=== PATIENT | male | born 1985 | race Caucasian/White ===

== ENCOUNTER 2017-08-09 09:08 | Emergency (ER) | payer OTHER ==
[2017-08-09 09:33] VITALS: BP 129/93
--- NOTE | 2017-08-09 09:57 | ED ---
GI/ HPI - HPI Summary HPI Summary: 32 yr old male with the complaint of penile redness and irritation. He and his girlfriend have been recently tested for STD that were negative. He has a hydroceole and is following up with urology. He states his girlfriend had a confirmed yeast infection. He feels he has a skin yeast infection as well. - History of Current Complaint Chief Complaint: [place] Time Seen by Provider: 08/09/17 09:42 Stated Complaint: SKIN COMPLAINT Pain Intensity: 0 - Allergy/Home Medications Allergies/Adverse Reactions: Allergies Allergy/AdvReac Type Severity Reaction Status Date / Time No Known Allergies Allergy Verified 08/09/17 09:25 Home Medications: Home Medications Clotrimazole 1% CREAM* [Clotrimazole 1%*] 1 applic TOPICAL BID PRN 08/09/17 [ History Confirmed 08/09/17] Folic Acid TAB* [Folvite TAB*] 2 mg PO DAILY 08/09/17 [History Confirmed ] Methotrexate TAB* 10 mg PO WEEKLY 08/09/17 [History Confirmed 08/09/17] Omeprazole CAP* [Prilosec CAP* 20 MG] 40 mg PO DAILY 08/09/17 [History Confirmed 08/09/17] Petrolatum 5 GM* [Vaseline*] 1 applic TOPICAL BID PRN 08/09/17 [History Confirmed 08/09/17] PMH/Surg Hx/FS Hx/Imm Hx Previously Healthy: Yes Endocrine/Hematology History: Denies: Hx Diabetes Cardiovascular History: Reports: Hx Hypertension Respiratory History: Denies: Hx Asthma - Surgical History Surgery Procedure, Year, and Place: 2004 Infectious Disease History: No Infectious Disease History: Denies: Traveled Outside the [place] in Last 30 Days - Family History Known Family History: Positive: Hypertension - FATHER - Social History Occupation: Employed Full-time Lives: With Family Alcohol Use: Weekly Alcohol Amount: 3-4 times a week Substance Use Type: Reports: None Smoking Status (MU): Never Smoked Tobacco Review of Systems Negative: Fever, Chills Positive: other - skin irritation penis flannery and foreskin. All Other Systems Reviewed And Are Negative: Yes Physical Exam Triage Information Reviewed: Yes Vital Signs On Initial Exam: Initial Vitals Temp Pulse Resp BP Pulse Ox 98.1 F 82 16 129/93 98 08/09/17 09:23 04/30/18 09:23 08/09/17 09:23 08/09/17 09:23 08/09/17 09:23 Vital Signs Reviewed: Yes Appearance: Positive: Well-Appearing, No Pain Distress Skin: Positive: Warm, Skin Color Reflects Adequate Perfusion Head/Face: Positive: Normal Head/Face Inspection Eyes: Positive: EOMI ENT: Positive: Normal ENT inspection Neck: Positive: Nontender Respiratory/Lung Sounds: Positive: Clear to Auscultation, Breath Sounds Present Cardiovascular: Positive: RRR. Negative: Murmur Abdomen Description: Positive: Nontender Male Genital Exam: Positive: No Hernia, Erythema - mild to the distal shaft of penis , flannery, and the foreskin. consitent with kris., Other - No vesicles. no pus. Negative: Epididymal Tenderness, Inguinal Tenderness, Scrotum Tenderness (R), Scrotum Tenderness (L), Testicular Tenderness (R), Testicular Tenderness (L), Urethral Discharge Musculoskeletal: Positive: Normal, Strength/ROM Intact Neurological: Positive: Sensory/Motor Intact, Alert, Oriented to Person Place, Time, CN Intact II-III, Normal Gait, Speech Normal Psychiatric: Positive: Normal AVPU Assessment: Alert - [place] Coma Scale Best Eye Response: 4 - Spontaneous Best Motor Response: 6 - Obeys Commands Best Verbal Response: 5 - Oriented Coma Scale Total: 15 Diagnostics - Vital Signs Vital Signs Temp Pulse Resp BP Pulse Ox 08/09/17 09:23 98.1 F 82 16 129/93 98 - Laboratory Lab Statement: Any lab studies that have been ordered have been reviewed, and results considered in the medical decision making process. GIGU Course/Dx - Course Course Of Treatment: 32 y old with kris infection shaft penis, and flannery. Plan Diflucan, and also antifungal powder. FU with Urology. - Diagnoses Provider Diagnoses: Infection due to yeast, Hypertension Discharge - Sign-Out/Discharge Documenting (check all that apply): Discharge/Admit/Transfer - Discharge Plan Condition: Good Disposition: HOME Prescriptions: Fluconazole [Diflucan 150 MG (NF)] 150 mg PO ONCE #1 tab Patient Education Materials: Skin Yeast Infection (ED), Hypertension (ED) Referrals: Virginie Leal PA [Primary Care Provider] - 2 Days - Billing Disposition and Condition Condition: GOOD Disposition: HOME
== END 2017-08-09 09:55 | disposition home or self-care (01) ==
LOC: UCCORT 09:08
DX: B37.49 Other urogenital candidiasis (principal); I10 Essential (primary) hypertension
CPT/HCPCS: 99212; G0463